=== PATIENT | female | born 1985 | race Caucasian/White ===

== ENCOUNTER 2021-02-09 08:53 | Day surgery (SDC) | payer BC ==
--- NOTE | 2021-02-06 12:10 | RAD REPORT ---
EXAM DESCRIPTION: RAD - Chest Pa And Lat (2 Views) - 02/06/2021 11:47 am CLINICAL HISTORY: Pre Op pending knee arthroscopy Chest pain. COMPARISON: No comparisons FINDINGS: The lungs are clear. The heart is normal in size. No displaced fractures. IMPRESSION: No acute or concerning finding suspected.
[2021-02-09 09:08] LABS: Specific Gravity 1.015 (1.005-1.030)
[2021-02-09] MEDS ORDERED: Ringers Lactate 1,000 ML IV ONE (09:14)
[2021-02-09] MEDS ORDERED: propofoL 200 MG/20 ML VIAL IV ONE (09:19)
[2021-02-09] MEDS ORDERED: LIDOCAINE 2% MPF 5 ML VIAL ONE (09:20)
[2021-02-09] MEDS ORDERED: MIDAZOLAM HCL 2 MG/2 ML INJ ONE (09:20)
[2021-02-09] MEDS ORDERED: ONDANSETRON 4 MG/2 ML VIAL ONE (09:20)
[2021-02-09] MEDS ORDERED: FENTANYL CITR 100 MCG/2 ML ONE (09:20)
[2021-02-09] MEDS ORDERED: dexAMETHasone 10 MG/ML VIAL ONE (09:20)
[2021-02-09] MEDS ORDERED: KETOROLAC 30 MG/ML INJ ONE (09:20)
[2021-02-09] MEDS ORDERED: BUPIVACAINE 0.25% PF 10 ML VIAL ONE (09:28)
[2021-02-09] MEDS ORDERED: CLINDAMYCIN 600MG/D5W 600 MG/50 ML BAG IV ONE (10:00)
--- NOTE | 2021-02-09 11:12 | P.BOP ---
Preoperative diagnosis: left knee medial meniscus tear Postoperative diagnosis: same, left knee patellar chondromalacia Primary procedure: left knee arthroscopic partial medial meniscectomy Secondary procedure: left knee arthroscopic chondroplasty patella Manager Radiation: NONE,NONE Estimated blood loss: 3 cc Specimen: none Findings: see dictation Anesthesia: General Complications: None Implants: none Fluids & blood products: per anesthesia record; TT: 30 mins @ 300 mmHg Transferred to: Recovery Room Condition: Good
[2021-02-09] MEDS: MIDAZOLAM HCL 2 MG/2 ML INJ ONE ×2 (11:23→12:00)
[2021-02-09] MEDS: HYDROMORPHONE HCL 1 MG/ML INJ ONE ×2 (11:34→11:39)
[2021-02-09] MEDS: MEPERIDINE HCL 25 MG/ML SYR ONE ×2 (11:42→11:47)
[2021-02-09] MEDS ORDERED: HYDROCODONE/APAP 5/325 MG TAB ONE (12:28)
[2021-02-09 12:59] VITALS: TEMP 96.8; O2SAT 100
[2021-02-09 14:07] VITALS: BP 128/78
--- NOTE | 2021-02-09 23:04 | OP ---
Date of Procedure: 02/09/2021 Surgeon: Isreal Frank MD Preoperative Diagnosis: Left knee medial meniscus tear. Postoperative Diagnosis: Left knee medial meniscus tear. Procedure Performed: Left knee arthroscopic partial medial meniscectomy. Anesthesia: General LMA. Fluids: Per Anesthesia record. Estimated Blood Loss: 3 cc. Implants: None. Complications: None. Indication For Procedure: Meka is a 35-year-old female, who presented to my clinic with signs, symp toms, and MRI findings consistent with a left knee medial meniscus tear. I discussed with the patien t at length risks and benefits associated with operative and nonoperative treatment. She expressed u nderstanding and elected to proceed with operative treatment. Description Of Procedure: After informed consent was obtained, the patient was identified in the pre operative holding area. The left lower extremity was marked. The patient was then [facility] operating room, transferred to the operating table in supine fashion, placed under general LMA ane sthesia. The lower extremity was then prepped and draped in usual sterile fashion. A time-out was i nitiated. Correct patient and procedure were confirmed and identified. The patient did receive her preoperative prophylactic antibiotics. The left lower extremity was then exsanguinated using an Peace rch and the tourniquet was inflated to 300 mmHg. Standard anterior medial and anterior lateral olman ls were created. The arthroscope was brought in via the anterior lateral portal and diagnostic arthr oscopy was performed. Arthroscopy was first brought in patellofemoral joint where the patient had so me grade 2 and 3 chondromalacia changes of the undersurface of the patella. There was no significant chondral pathology noted to the trochanter groove. Chondroplasty was performed using an arthroscopi c shaver to any loose chondral flaps noted on the undersurface of the patella. The arthroscope was t hen brought into both medial and lateral gutters. There were no loose bodies found within the gutter s. The arthroscope was then brought in the medial compartment. The patient was noted to have a comp bahman tear of the medial meniscus body. A partial medial meniscectomy was performed using the arthrosc opic shaver as well as meniscal biters to smooth meniscal borders. There was some mild fissuring not ed in the medial femoral condyle, but no full-thickness chondral loss was noted. The arthroscope was then brought into intercondylar notch. The patient was noted to have an intact ACL and PCL, which w ere stable to probe. The arthroscope was then brought to the lateral compartment. The patient was n oted to have an intact lateral meniscus, which was stable to probe as well as no significant chondral pathology of the lateral femoral condyle and lateral tibial plateau. The arthroscopic instruments w ere then removed without complication. Wounds were then irrigated thoroughly with normal saline. Po rtals were approximated using a 3-0 Monocryl. Sterile dressings were applied. Tourniquet was let do wn. The patient was awakened and transferred to PACU in stable condition. Postoperative Plan: The patient will follow up in my clinic next week for wound check. Physical The rapy will be consulted and the patient will work on physical therapy per post medial and partial meni scectomy protocol. ALIYA/LU Voice ID: [id number] Report ID: [id number]
== END 2021-02-09 13:50 | disposition home or self-care (01) ==
LOC: OR 08:53
PROVIDERS: ATTEND Orthopaedic Surgery Sports Medicine
PROC: 0SBD4ZZ Excision of Left Knee Joint, Percutaneous Endoscopic Approach (ICD-10-PCS; principal; 2021-02-09 10:00)
DX: S83.232A Complex tear of medial meniscus, current injury, left knee, initial encounter (principal); M25.562 Pain in left knee; M25.561 Pain in right knee; M17.11 Unilateral primary osteoarthritis, right knee; M17.12 Unilateral primary osteoarthritis, left knee; Z20.822 Contact with and (suspected) exposure to COVID-19
CPT/HCPCS: 81025; 71046; 29881; U0002; J2704; J2250 ×2; J3010; J1100; J2175; J1170; J7120; J2405